=== PATIENT | male | born 1965 | race Caucasian/White ===

== ENCOUNTER → 2021-01-30 02:03 | Outpatient (CLI) | payer OTHER, SELFPAY ==
[2021-01-30 17:43] LABS: SARS-CoV-2 RNA PCR Negative
== END ==
PROVIDERS: PCP Family Medicine; Visit Provider Surgery
DX: Z01.812 Encounter for preprocedural laboratory examination (principal); Z20.822 Contact with and (suspected) exposure to COVID-19
CPT/HCPCS: C9803; U0003; U0005

== ENCOUNTER 2021-02-02 01:42 | Day surgery (SDC) | payer OTHER, SELFPAY ==
[2021-01-20 15:05] VITALS: BMI 23.7
[2021-02-02 11:00] VITALS: BP 139/73; PULSE 80; RESP 16; TEMP 36.1; O2SAT 100; BMI 23.0
[2021-02-02] MEDS: LACTATED RINGERS 1,000 ML 30 ML IV CONT ×2 (11:20→14:46)
[2021-02-02] MEDS: ACETAMINOPHEN 500 MG TABLET 1000 MG PO (11:21)
[2021-02-02] MEDS: KETOROLAC 15 MG/ML VIAL (*BKC) IV PUSH (11:22)
--- NOTE | 2021-02-02 12:45 | WPDANESEPPF ---
Anes - Initial Pre Proc Eval Procedure: Operation Date: 02/02/21 12:30 Proposed Procedures p Left Inguinal Hernia Repair - Terrance Guzman MD Date/Time: 02/02/21 12:45 Surgeon: Terrance Guzman MD Pre Op Diagnosis: Left Inguinal Hernia Patient Data Age: 55 Gender: M Height: 6 ft Weight: 77.1 kg Last Vital Signs Temp 97 F L 02/02/21 11:00 Pulse 80 02/02/21 11:00 Resp 16 02/02/21 11:00 BP 139/73 02/02/21 11:00 Pulse Ox 100 02/02/21 11:00 Allergies Allergy/AdvReac Type Severity Reaction Status Date / Time codeine Allergy Intermediate Nausea and Verified 02/02/21 11:07 Vomiting Penicillins Allergy Unknown breathing Verified 02/02/21 11:07 issues Home Medications Medication Instructions Recorded Confirmed Type ascorbic acid (vitamin C) 3 g PO DAILY 06/27/19 02/02/21 History garlic 1,000 mg PO DAILY 06/27/19 02/02/21 History multivitamin 1 cap PO DAILY 06/27/19 02/02/21 History turmeric 400 mg PO DAILY 01/20/21 02/02/21 History Patient hx anesthesia problems: none Family hx anesthesia problems: none PMFSH Past Medical History Medical History Abnormal EKG Gastroesophageal reflux disease without esophagitis Palpitations Surgical History Surgical History History of removal of cyst History of tooth extraction Family History Family History Father Hypertension Grandparent Heart disease Other Hypertension Social History Social History Smoking packs per day: 1 Smoking cigarettes per day: 20.0 Years smoked: 9 Smoking pack-years: 9.00 Smoking status: Former smoker Second hand tobacco smoke exposure: No Smoking end date: 08/19/13 Alcohol intake: former Substance use: never Substance use type: does not use Living arrangements: with family Gender identity (if verbalized by the patient): Male Spiritual care concerns: No Anes - Eval Final PreProcedure Day of Procedure 02/02/21 12:45 Patient weight: normal Heart: regular rate and rhythm Lungs: clear to auscultation Airway: Mallampati scale class II Neurological: alert and oriented Last oral intake: >/= 8 hours ASA classification: II Emergent: no Anesthetic plan: proceed Anesthesia type and monitoring: general GIVS and standard monitoring Informed Consent: The patient's anesthetic plan and its attendant risks and benefits were discussed with the patient/family/POA. Questions were solicited and answers provided to the satisfaction of the patient/family/POA.
--- NOTE | 2021-02-02 13:05 | WPDHPUPDATE1 ---
History and Physical Update Update Date/Time: 02/02/21 13:05 History and Physical has been reviewed, including an updated exam of the patient. There are NO changes in the patient's condition. Risks, benefits, and alternatives have been discussed and questions answered. Patient agrees to proceed with procedure.
[2021-02-02] MEDS: ceFAZolin 2 GM/D5W 50 ML 2 GM/50 ML BAG IVPB (13:18)
[2021-02-02] MEDS: BUPIVACAINE HCL 0.5% PF 30 ML VIAL INFILTRATE (13:48)
[2021-02-02 14:46] VITALS: BP 145/80; PULSE 66; RESP 16; O2SAT 100
[2021-02-02 15:15] VITALS: BP 159/85; PULSE 68; RESP 20
--- NOTE | 2021-02-02 15:19 | P.OP_ITS ---
Procedure Note - Detailed Date of Procedure 02/02/21 Pre-op Diagnosis Left Inguinal Hernia Post-op Diagnosis same Procedure Performed Left inguinal hernia repair with Parietex hernia mesh system Surgeon Terrance Guzman MD Packing And Final Assembly Supervisor Irlanda JAIMES Anesthesia general (G IV S) and local (0.5% Marcaine with Exparel) Indications Patient noticed an enlarging left inguinal bulge. It has been there for over a year. He was seen in the office and found to have a reducible left inguinal hernia. He is taken to surgery now for repair. Findings Patient had a large direct inguinal hernia. Description of Procedure Patient was marked in the preoperative holding area. He was then taken to surgery and IV sedation was introduced. The left groin and genitalia were prepped and draped. The proposed incision was marked on the skin in the left groin. Local anesthetic was infiltrated into the skin and the deeper subcutaneous tissues. Incision was made and dissection was carried down through the subcutaneous. Crossing veins were cauterized and divided. Eventually we dissected through Filomena's fascia and down to the external oblique aponeurosis. The aponeurosis was exposed as was the external ring. We infiltrated additional local anesthetic deep to the aponeurosis in the area of the spermatic cord and inguinal canal. The external oblique aponeurosis was then opened laterally and this incision was extended medially through the external ring. Care was taken to avoid injury to the ileoinguinal nerve which was left attached to the spermatic cord. The leaves of the aponeurosis were freed from the underlying inguinal canal contents. I then mobilized the cord medially on a Alexandru drain. The hernia sac was seen located medially in the inguinal canal. It was dissected free from the spermatic cord. It was a wide-based direct hernia. I checked in the cord and no indirect hernia was noted. I dissected circumferentially around the neck of the direct hernia. I then scored through the transversalis fascia circumferentially around the hernia sac. This was done just off the neck of the hernia. I was then able to dunk the hernia into the retroperitoneum. An 8 cm Parietex [place] was chosen. It was folded formal plug. It was placed in the defect and then sutured in position with interrupted 3 0 Vicryl suture. Some suture were used also partially close the defect by suturing the edges to 1 another over the plug. I then cut the patch to the appropriate size and placed it over the inguinal canal floor. The lateral leaves were passed beyond the cord. The cord and ilioinguinal nerve were then laid over the patch. I closed the external oblique aponeurosis with interrupted 3 0 Vicryl suture. Filomena's fascia was closed with interrupted 3 0 Vicryl suture. The subcutaneous was closed with 4 0 interrupted Vicryl suture. A subcuticular interrupted 4 0 Vicryl skin stitch was placed. Finally a running 4 Monocryl subcuticular skin stitch was placed. The wound was dressed with Exofin surgical adhesive. The patient was awakened and taken to recovery in good condition. Sponge and needle counts were correct x2. Implants 8 cm Parietex hernia mesh system Estimated Blood Loss -5.0 Drains No Packing No Pathology none sent Complications None Condition stable Disposition same day
[2021-02-02 15:45] VITALS: BP 141/69; PULSE 67; RESP 20
[2021-02-02 16:15] VITALS: BP 154/87; PULSE 60; RESP 20
[2021-02-02 16:45] VITALS: BP 137/78; PULSE 66; RESP 20
== END 2021-02-02 17:00 | disposition home or self-care (01) ==
PROVIDERS: PCP Family Medicine; Visit Provider Surgery
PROC: (CPT 49505; principal; 2021-02-02 12:30)
DX: K40.90 Unilateral inguinal hernia, without obstruction or gangrene, not specified as recurrent (principal); K21.9 Gastro-esophageal reflux disease without esophagitis; Z87.891 Personal history of nicotine dependence
CPT/HCPCS: 49505; A9270; C1781; C9290; C9803; J0690; J1885; J2250; J2405; J2704; J3010; J7120; U0003; U0005

== ENCOUNTER 2021-11-25 15:04 | Emergency (ER) | payer OTHER, SELFPAY ==
[2021-11-25 15:12] VITALS: BP 148/75; PULSE 89; RESP 18; TEMP 36.9; O2SAT 100
--- NOTE | 2021-11-25 15:33 | ED.URI ---
HPI - URI/Sore Throat General Chief Complaint: Upper Respiratory Infection Stated Complaint: Headache,Congestion Time Seen by Provider: 11/25/21 15:34 Source: patient Mode of arrival: ambulatory Limitations: no limitations History of Present Illness HPI Narrative: James Higuera is a 55 yo male with no PMH who comes to [facility] complaining of 2 to 3 days of sinus symptoms after having a cold for the week prior. He has no obvious congestion and is afebrile on presentation Related Data Home Medications Medication Instructions Recorded Confirmed ascorbic acid (vitamin C) 3 g PO DAILY 06/27/19 11/25/21 garlic 1,000 mg PO DAILY 06/27/19 11/25/21 multivitamin 1 cap PO DAILY 06/27/19 11/25/21 turmeric 400 mg PO DAILY 01/20/21 11/25/21 Allergies Allergy/AdvReac Type Severity Reaction Status Date / Time Penicillins Allergy Severe breathing Verified 11/25/21 15:31 issues codeine Allergy Intermediate Nausea and Verified 11/25/21 15:13 Vomiting Review of Systems Review of Systems: CONSTITUTIONAL: Denies fever, chills, sweats. EYES: Denies visual changes, redness, discharge. ENT: Denies rhinorrhea, sinus congestion with yellow discharge, sore throat, otalgia. CARDIOVASCULAR: Denies chest pain, palpitations, edema. RESPIRATORY: Denies dyspnea, wheezing, cough GASTROINTESTINAL: Denies abdominal pain, nausea, vomiting, diarrhea. GENITOURINARY: Denies dysuria, hematuria, abnormal discharge SKIN: Denies rash or itching. NEUROLOGIC: Denies numbness, or focal weakness. PSYCHIATRIC: Denies anxiety or depression. [facility] Past Medical History Medical History Abnormal EKG Gastroesophageal reflux disease without esophagitis Palpitations Surgical History Surgical History H/O left inguinal hernia repair 02/02/21 History of removal of cyst History of tooth extraction Family History Family History Father Hypertension Grandparent Heart disease Other Hypertension Social History Social History Smoking packs per day: 1 Smoking cigarettes per day: 20.0 Years smoked: 9 Smoking pack-years: 9.00 Second hand tobacco smoke exposure: No Smoking end date: 08/19/13 Alcohol intake: former Alcohol use details: Occasional Substance use: never Substance use type: does not use Gender identity (if verbalized by the patient): Male Spiritual care concerns: No Comments At time of signature, I agree with nursing past medical, surgical, social and family history. There is no relevant family history pertinent to the presenting complaint. Patient's blood pressure is elevated at this visit but denies any history of hypertension Exam Narrative: GENERAL: This is a well-nourished, well-developed patient, in no distress. HEAD: normocephalic, atraumatic. EYES:. Sclera clear/white. Vision is grossly intact. EARS: External ears normal, auditory canals clear and without drainage, TMs normal without perforation. Hearing grossly intact. NOSE: External nose normal without nasal discharge, nares without redness, no rhinorrhea. No puffiness around the eyes THROAT: Mucous membranes moist, posterior pharynx pink withsmall amount clear drainage NECK: Neck supple, non-tender CARDIOVASCULAR: Regular rate and rhythm without murmurs, gallops, or rubs. RESPIRATORY: Clear to auscultation. Breath sounds equal bilaterally. No wheezes, rales, or rhonchi. GASTROINTESTINAL: Abdomen soft, non-tender, SKIN: warm, intact with no suspicious lesions or rash, good texture and turgor. NEURO: awake, alert, and oriented to person, place and time. There were no obvious focal neurologic abnormalities. Steady gait EXTREMITIES: Normal range of motion. BACK: Nontender without deformity Course Course Emergency Course: Dio
== END 2021-11-25 15:43 | disposition home or self-care (01) ==
PROVIDERS: Emergency Provider Nurse Practitioner; PCP Family Medicine
DX: J01.90 Acute sinusitis, unspecified (principal); J01.10 Acute frontal sinusitis, unspecified; F17.210 Nicotine dependence, cigarettes, uncomplicated; K21.9 Gastro-esophageal reflux disease without esophagitis
CPT/HCPCS: 99213; G0463

== ENCOUNTER 2023-01-08 16:09 | Emergency (ER) | payer OTHER, SELFPAY ==
--- NOTE | ~2023-01-08 | CT_ITS ---
EXAMINATION: CT brain wo con DATE: 01/08/2023 18:49 INDICATION: headache, subconjunctival hemorrhage . TECHNIQUE: Computed tomography (CT) of the head was performed without intravenous contrast. The mA wa s adjusted according to patient size. Iterative reconstruction technique was employed. The dose-lengt h product was 681.00 mGy-cm. COMPARISON: 01/28/2015. FINDINGS: No acute intracranial hemorrhage or extra-axial fluid collection. No hydrocephalus, mass, or herniation. No acute ischemic infarct. Unremarkable dural venous sinus attenuation. No acute osseous abnormality. The aerated spaces are clear. IMPRESSION: No acute intracranial process. Reviewed, dictated and finalized at location K.
[2023-01-08 16:19] VITALS: BP 146/82; PULSE 59; RESP 16; TEMP 36.6; O2SAT 100
--- NOTE | 2023-01-08 18:25 | ED.EYEPROB ---
HPI - Eye Problem General Chief complaint: Eye Problems Stated complaint: bleeding left eye Time Seen by Provider: 01/08/23 18:23 History of Present Illness HPI Narrative: 57-year-old male reports for evaluation of ruptured blood vessels to the left thigh that started today. Patient states he was sitting in a meeting when he felt a dull ache in his left eye. States he later went to the bathroom, looked in the mirror and saw the ruptured blood vessels. He denies blurred vision, diplopia, drainage, eye injury. States it does not feel like he has a foreign body in his eye. He does report a mild headache. He does not take any anticoagulation medications or antiplatelets. Related Data Home Medications Medication Instructions Recorded Confirmed ascorbic acid (vitamin C) 1,000 mg 3 g PO DAILY 06/27/19 12/31/22 tablet garlic 1,000 mg capsule 1,000 mg PO DAILY 06/27/19 12/31/22 multivitamin 1 cap PO DAILY 06/27/19 12/31/22 turmeric 400 mg capsule 400 mg PO DAILY 01/20/21 12/31/22 Allergies Allergy/AdvReac Type Severity Reaction Status Date / Time Penicillins Allergy Severe breathing Verified 12/31/22 16:44 issues codeine Allergy Intermediate Nausea and Verified 12/31/22 16:44 Vomiting Review of Systems Review of Systems: CONSTITUTIONAL: Denies fever, chills EYES: See HPI ENT: Denies rhinorrhea, congestion, sore throat, or otalgia. CARDIOVASCULAR: Denies chest pain, palpitations, or edema. RESPIRATORY: Denies cough or dyspnea. GASTROINTESTINAL: Denies abdominal pain, nausea, vomiting, or diarrhea. GENITOURINARY: Denies dysuria or hematuria. SKIN: Denies rash or itching. MUSCULOSKELETAL: Denies back pain, joint pain, or myalgia. NEUROLOGIC: Denies headache, numbness, dizziness, or weakness. PSYCHIATRIC: Denies anxiety or depression. [facility] Past Medical History Medical History Abnormal EKG Gastroesophageal reflux disease without esophagitis Palpitations Surgical History Surgical History H/O left inguinal hernia repair 02/02/21 History of removal of cyst History of tooth extraction Family History Family History Father Hypertension Grandparent Heart disease Other Hypertension Social History Social History Smoking packs per day: 1 Smoking cigarettes per day: 20.0 Years smoked: 9 Smoking pack-years: 9.00 Smoking status: Never smoker Second hand tobacco smoke exposure: No Smoking end date: 08/19/13 Alcohol intake: former Alcohol use details: Occasional Substance use: never Substance use type: does not use Living arrangements: with family Occupation/Education: occupation Gender identity (if verbalized by the patient): Male Spiritual care concerns: No Exam Narrative: GENERAL: Well-appearing, in no acute distress. HEAD: Normocephalic EYES: Fresh red blood noted to the outer left quadrant of the left eye. It does not cross the iris. No hyphema. PEERLA. EOMI. peripheral vision intact. Visual acuity: L 20/20, R 20/25. Tonopen: R 12, L 16. No drainage or discharge noted from eye. ENT: Nares clear. Mucous membranes moist. Oropharynx without tonsillar hypertrophy exudate or other lesions. NECK: Supple. CHEST: No respiratory distress. Clear to auscultation, no adventitious breath sounds. HEART: Regular rate and rhythm. No murmur heard. Normal peripheral pulses. SKIN: Warm, dry, no rash. NEURO: No focal deficits. Alert and oriented x3. PSYCH: Normal mood and affect. Course Vital Signs Vital signs: Vital Signs Temperature 97.8 F 01/08/23 16:19 Pulse Rate 59 L 01/08/23 16:19 Respiratory Rate 16 01/08/23 16:19 Blood Pressure 146/82 H 01/08/23 16:19 Pulse Oximetry 100 01/08/23 16:19 Oxygen Delivery Room Air 0
[2023-01-08 18:31] VITALS: BP 133/91; PULSE 64; RESP 16; O2SAT 100
[2023-01-08 18:49] LABS: Basophils Percent Auto 0.3 % (0.2-1.2); Eosinophils Absolute Auto 0.1 K/mm3 (0-0.3); Eosinophils Percent Auto 1.5 % (0-4.4); Hematocrit 46.7 % (42.0-52.0); Hemoglobin 15.8 g/dL (14.0-18.0); Immature Granulocyte Absolute 0.03 K/mm3 (0.00-0.031); Immature Granulocyte Percent A 0.3 % (0-0.5); Lymphocytes Absolute Auto 1.77 K/mm3 (0.9-3.2); Lymphocytes Percent Auto 20.4 % (18.3-44.2); Mean Corpuscular HGB Conc 33.8 g/dl (32-36); Mean Corpuscular Hemoglobin 29.9 pg (26-34); Mean Corpuscular Volume 88.4 fl (80-100); Mean Platelet Volume 10.1 fl (7.4-10.4); Monocytes Absolute Auto 0.6 K/mm3 (0.1-0.6); Monocytes Percent Auto 6.6 % (2.6-8.5); Neutrophils Absolute Auto 6.2 K/mm3 (1.3-6.7); Neutrophils Percent Auto 70.9 % (45.5-73.1); Platelet Count Result 318 k/mm3 (150-375); Red Blood Count 5.28 M/mm3 (4.6-6.20); Red Cell Distribution Width 12.3 % (11.5-14.5); White Blood Count 8.7 K/mm3 (4.5-10.0)
== END 2023-01-08 19:18 | disposition home or self-care (01) ==
PROVIDERS: Emergency Provider Physician Assistant; PCP Family Medicine
DX: H11.32 Conjunctival hemorrhage, left eye (principal); K21.9 Gastro-esophageal reflux disease without esophagitis; Z87.891 Personal history of nicotine dependence
CPT/HCPCS: 36415; 70450; 85025; 99284

== ENCOUNTER 2023-12-11 12:40 | Inpatient (IN) | payer OTHER, SELFPAY ==
[2023-12-11] VITALS (17 sets, daily range): BP systolic 117–157; BP diastolic 67–80; PULSE 63–85; RESP 12–20; TEMP 36.6–36.7; O2SAT 98–100; BMI 22.9
--- NOTE | ~2023-12-11 | XR_ITS ---
EXAMINATION: XR chest 2V 12/11/2023 16:26 INDICATION: Dyspnea PROCEDURE: 2 view chest COMPARISON: 06/27/2019 FINDINGS: The lungs are clear. The cardiomediastinal silhouette is within normal limits. There are no pleural effusions. There is no pneumothorax suspected. IMPRESSION: 1: NO ACUTE CARDIOPULMONARY DISEASE. Reviewed, dictated and finalized at location B.
--- NOTE | ~2023-12-11 | CT_ITS ---
EXAMINATION: CTA chest PE protocol DATE: 12/11/2023 19:22 INDICATION: Chest pain. Dyspnea. TECHNIQUE: Computed tomography angiography (CTA) of the chest was performed with 100 mL Omnipaque-350 intravenous contrast timed to evaluate the pulmonary arteries. Coronal maximum intensity projection 3D-reconstructions were created by the technologist. Automated exposure control and iterative reconst ruction technique were employed. The dose-length product was 364.48 mGy-cm. COMPARISON: None. FINDINGS: The lungs demonstrate mild atelectasis. There is mild scarring at right lung apex. No pleur al effusion. The heart size is normal. No pericardial effusion. There is no pulmonary embolus. There is severe atrophy of right kidney. There is mild thoracic spondylosis. IMPRESSION: 1. No pulmonary embolus. 2. Severe atrophy of right kidney. Reviewed, dictated and finalized at location E.
--- NOTE | ~2023-12-11 | NM_ITS ---
EXAMINATION: NM nano stress w perfusion DATE: 12/13/2023 10:41 CDT INDICATION: Chest pain TECHNIQUE: Rest images were obtained following intravenous administration of 10.9 mCi Tc99m tetrofosm in (Myoview). The patient was infused intravenously with Lexiscan (regadenoson). Then, 35.3 mCi Tc99m tetrofosmin (Myoview) was administered intravenously, and stress images were obtained. Data was onesimo nstructed into short axis and horizontal and vertical long axis SPECT images. Gated SPECT images were also obtained. COMPARISON: None. FINDINGS: There is no definite reversible or fixed perfusion abnormality to suggest ischemia or infar ction. There is no segmental wall motion abnormality. Left ventricular ejection fraction measures 7 4%. IMPRESSION: 1. No definite ischemia or infarct. 2. Normal left ventricular ejection fraction measuring 74%. Reviewed, dictated and finalized at location B.
[2023-12-11 12:47] LABS: Glucose Point of Care 105 mg/dl (65-105)
--- NOTE | 2023-12-11 16:01 | ED.GENADULT ---
HPI - General Adult General Chief complaint: Shortness of Breath/Dyspnea <Gadiel Parry PA-C - Last Filed: 12/11/23 16:03> Stated complaint: jittery, sweaty, dyspnea <Gadiel Parry PA-C - Last Filed: 12/11/23 16:03> Time Seen by Provider: 12/11/23 16:01 <Gadiel Parry PA-C - Last Filed: 12/11/23 16:03> This is a 57-year-old male who presents to the ED with chief complaint of an episode of shortness of breath and palpitations onset just prior to arrival. Patient states that he was driving in his car [place] when he started to feel discomfort in the chest as well as irregular heartbeat. States he this was associated with bilateral hand numbness and tingling and shortness of breath. Reports that he had a similar episode 1 and half weeks ago. States that about a week ago his mother and he has been dealing with that stress recently. Denies any cardiac or medical history. Denies leg swelling, cough, fevers, chills, back pain, abdominal pain, nausea, vomiting, syncope. <Nelly Norris PA-C - Last Filed: 12/12/23 02:52> Source: patient <Gadiel Parry PA-C - Last Filed: 12/11/23 16:03> Mode of arrival: ambulatory <Gadiel Parry PA-C - Last Filed: 12/11/23 16:03> Limitations: no limitations <ROWDY Brown Last Filed: 12/11/23 16:03> History of Present Illness HPI narrative: This is a 57-year-old male who presents to the ED with chief complaint of an episode of shortness of breath and palpitations onset just prior to arrival. Patient states that he was driving in his car [place] from [place] when he started to feel discomfort in the chest as well as irregular heartbeat. States he this was associated with bilateral hand numbness and tingling and shortness of breath. Reports that he had a similar episode 1 and half weeks ago. States that about a week ago his mother and he has been dealing with that stress recently. Denies any cardiac or medical history. Denies leg swelling, cough, fevers, chills, back pain, abdominal pain, nausea, vomiting, syncope. <Gadiel Parry PA-C - Last Filed: 12/11/23 16:03> 57-year-old male presents to emergency department for an episode of palpitations, shortness of breath and diaphoresis that occurred prior to arrival. Patient states he was on his way home from the [place] when he felt a flutter in his chest that lasted half a second followed by shortness of breath, jittery-ness, bilateral hand tingling and diaphoresis. Patient states he called his and came to the ER immediately for further evaluation. Upon arrival, he states he noticed some pain to the left side of his chest that radiated down his left arm to his elbow. States this lasted approximately 30-45 minutes. He now is resting comfortably in exam bed and states he feels while, he no longer has chest pain or shortness of breath. He states he does have some leftover jitteriness. He states he has had episodes of this in the past with a have never been this bad before. His last episode was 1.5 weeks ago, 4 years ago and about 8 years ago. He denies a diagnosis of anxiety. Also endorses his mother 1 week ago and he has been under he a large amount of stress for the past 2-3 months with her illness. States he has not smoked and multiple decades. Reports cardiac history with his paternal grandfather, otherwise denies current or familial cardiac history. <Nelly Norris PA-C - Last Filed: 12/12/23 02:52> Related Data Home medications: Home Medications Medication Instructions Recorded Confirmed ascorbic acid (vitamin C) 1,000 mg 3 g PO DAILY 06/27/19 12/11/23 tablet multivitamin 1 cap PO DAILY 06/27/19 12/11/23 turmeric 400 mg capsule 400 mg PO DAILY 01/20/21 12/11/23 <Gadiel Parry PA-C - Last Filed: 12/11/23 16:03> Allergies/adverse reactions: Allergies Allergy/AdvReac Type Severity Reaction Status Date / Time Anna
[2023-12-11 16:27] LABS: Basophils Percent Auto 0.2 % (0.2-1.2); Eosinophils Percent Auto 0.2 % (0-4.4); Hematocrit 46.9 % (42.0-52.0); Hemoglobin 15.7 g/dL (14.0-18.0); Immature Granulocyte Absolute 0.05 K/mm3 (0.00-0.031); Immature Granulocyte Percent A 0.4 % (0-0.5); Lymphocytes Absolute Auto 1.46 K/mm3 (0.9-3.2); Mean Corpuscular HGB Conc 33.5 g/dl (32-36); Mean Corpuscular Hemoglobin 29.8 pg (26-34); Mean Platelet Volume 11.7 fl (7.4-10.4); Monocytes Absolute Auto 0.5 K/mm3 (0.1-0.6); Monocytes Percent Auto 3.9 % (2.6-8.5); Neutrophils Absolute Auto 11.2 K/mm3 (1.3-6.7); Neutrophils Percent Auto 84.3 % (45.5-73.1); Platelet Count Result 238 k/mm3 (150-375); Red Blood Count 5.27 M/mm3 (4.6-6.20); Red Cell Distribution Width 12.3 % (11.5-14.5); White Blood Count 13.2 K/mm3 (4.5-10.0)
[2023-12-11 16:28] LABS: Alanine Aminotransferase 25 U/L (6-50); Albumin Level 4.8 g/dL (3.5-5.1); Alkaline Phosphatase 51 U/L (38-126); Anion Gap 7 mmol/L (4-12); Aspartate Amino Transferase 32 U/L (17-59); Bilirubin,Total 0.7 mg/dL (0.2-1.3); Blood Urea Nitrogen 22 mg/dL (9-20); Calcium 9.6 mg/dL (8.4-10.2); Carbon Dioxide 26 mmol/L (22-30); Chloride 105 mmol/L (98-107); Estimated Glomerular Filt Rate > 60; Glucose 129 mg/dL (65-110); Potassium 3.8 mmol/L (3.4-5.0); Sodium 138 mmol/L (137-145)
[2023-12-11 16:43] LABS: Troponin I 0.053 ng/mL (0.000-0.034)
[2023-12-11] MEDS: ASPIRIN 81 MG CHEWABLE TABLET 324 MG PO (16:54)
[2023-12-11 17:11] LABS: Partial Thromboplastin Time 31.3 Seconds (22.3-36.8); Prothrombin Time 13.8 Seconds (11.1-14.7)
[2023-12-11 17:15] LABS: D Dimer 1.02 ug/mL (<0.48)
[2023-12-11 18:42] LABS: NT Pro B Type Natriuretic Pept 80 pg/mL (19.9-100)
--- NOTE | 2023-12-11 19:00 | ECG_ITS ---
SEE SCANNED COPY FOR CONFIRMED REPORT MTDD
[2023-12-11] MEDS: LORazepam INJ (*CRX) 2 MG/ML VIAL 0.5 MG IV PUSH (19:26)
[2023-12-11 19:50] LABS: Troponin I 0.061 ng/mL (0.000-0.034)
--- NOTE | 2023-12-11 20:14 | PM.IMHP ---
H&P: HPI History of Present Illness Date/Time: 12/11/23 20:14 Chief Complaint: chest pain. Narrative: This is a 57-year-old male with past medical history significant for gastroesophageal reflux disease. patient presented to the emergency room after having episode while driving of flutter in the chest diaphoresis lightheadedness nausea this episode lasted roughly 40 [address] himself to the emergency room. At the time of my visit patient rated his pain at 0/10 in intensity. Has been his usual state of health up until this point. Denies any palpitations, shortness of breath, PND, cough, nausea, vomiting, diarrhea, abdominal pain, fevers, rigors, chills, leg swelling. Preliminary workup was significant for abnormal troponin. EXAMINATION: XR chest 2V 12/11/2023 16:26 INDICATION: Dyspnea PROCEDURE:? 2 view chest COMPARISON: 06/27/2019 FINDINGS: The lungs are clear.? The cardiomediastinal silhouette is within normal limits.? There are no pleural effusions.? There is no pneumothorax suspected.? IMPRESSION: 1:? NO ACUTE CARDIOPULMONARY DISEASE. EXAMINATION: CTA chest PE protocol DATE: 12/11/2023 19:22 INDICATION: Chest pain. Dyspnea. TECHNIQUE: Computed tomography angiography (CTA) of the chest was performed with 100 mL Omnipaque-350 intravenous contrast timed to evaluate the pulmonary arteries. Coronal maximum intensity projection 3D-reconstructions were created by the technologist. Automated exposure control and iterative reconstruction technique were employed. The dose-length product was 364.48 mGy-cm. COMPARISON: None. FINDINGS: The lungs demonstrate mild atelectasis. There is mild scarring at right lung apex. No pleural effusion. The heart size is normal. No pericardial effusion. There is no pulmonary embolus. There is severe atrophy of right kidney. There is mild thoracic spondylosis. IMPRESSION: 1. No pulmonary embolus. 2. Severe atrophy of right kidney. Review of Systems Review of Systems: Chest pain, diaphoresis, nausea, lightheadedness lasted for 40 minutes Constitutional: Constitutional: Denies chills, Denies fatigue, Denies fever(s), Denies malaise and Denies weakness Eyes: Eyes: Denies change in vision ENT: Denies dysphagia and Denies odynophagia Cardiovascular: Cardiovascular: Reports chest pain, Denies leg edema, Denies radiating jaw, neck or arm pain, Denies palpitations and Reports other ( chest flutter) Respiratory: Respiratory: Denies chest congestion, Denies cough and Denies excessive phlegm production Gastrointestinal: Gastrointestinal: Denies abdominal pain, Denies nausea and Denies vomiting Genitourinary: Genitourinary: Denies dysuria Musculoskeletal: Musculoskeletal: Denies myalgias Integumentary/Breasts: Skin/Breast: Denies rash Neurologic: Denies focal weakness and Denies Sensory deficit (Neuro) Psychiatric: Psychiatric: Reports no additional psychiatric complaints and Reports as per HPI Endocrine: Endocrine: Denies cold intolerance, Denies fatigue, Denies flushing, Denies heat intolerance, Denies polyphagia, Denies polydipsia, Denies polyuria and Denies palpitations Hematologic/Lymphatic: Hematologic/Lymphatic: Reports no additional hematologic/lymphatic complaints and Reports as per HPI Allergic/Immunologic: Allergic/Immunologic: Reports no additional allergic/immunologic complaints and Reports as per HPI PMFSH Past Medical History Medical History (Updated 12/11/23 @ 20:49 by Patrick Melendez MD) Abnormal EKG Gastroesophageal reflux disease without esophagitis Palpitations Surgical History Surgical History H/O left inguinal hernia repair 02/02/21 History of removal of cyst History of tooth extraction Family History Family History Father Hypertension Grandparent Heart disease Other Hypertension Social History
--- NOTE | 2023-12-11 21:55 | ADMGEN ---
This patient, James Higuera, was admitted to IMU Room 200-01. Patient/family oriented to hospital policies and general routines including ID bracelet, bed and alarms, visiting hours, pain management, procedures, bathroom and other care routines, personal items, smoking policy, room service/diet, and visiting hours. Information on how to activate the Rapid Response Team has been discussed. Patient/Family are encouraged to report perceived risks to care and to ask questions if they do not understand what they are told or what they should do.
[2023-12-11 22:28] LABS: Cholesterol 179 mg/dL (0-200)
[2023-12-11 22:40] LABS: Troponin I 0.042 ng/mL (0.000-0.034)
[2023-12-11 23:30] LABS: HDL Direct 47 mg/dL; Triglycerides 68 mg/dL (<150)
[2023-12-11 23:36] LABS: LDL Cholesterol Direct 118 mg/dL
[2023-12-12] VITALS (21 sets, daily range): BP systolic 123–149; BP diastolic 67–79; PULSE 60–72; RESP 16–18; TEMP 36.1–36.6; O2SAT 100
--- NOTE | 2023-12-12 09:12 | PM.CNCAR ---
Assessment and Plan Assessment and plan (1) Elevated troponin: Code(s): R79.89 - Other specified abnormal findings of blood chemistry Status: Acute Assessment and Plan: Mild troponin elevation with flat curve presenting with atypical symptoms suggestive of heightened anxiety/panic attack. Another consideration would be SVT however the symptoms as he describes persisted for no more than a couple of seconds and he has been in sinus rhythm without SVT throughout. As such, this is not a cannot be the explanation for his symptomatology. Flat troponin elevation present initially indicates a process ongoing prior to presentation I would not be consistent with acute coronary syndrome and/or plaque rupture although precise etiology remains unclear at this time. Given the lack of alternative explanation I have recommended ischemic workup for further evaluation. Unfortunately, he was allowed to eat breakfast this morning and as such ischemic evaluation will need to be deferred. Will obtain 2D echocardiogram to assess LV function, wall motion abnormality, valve pathology, pulmonary pressures and assess pericardium. Further recommendation to follow after review. Discussed at great length the patient risks, benefits and alternatives to the above approach. Patient verbalized understanding and agreed with plan of care. Patient is otherwise hemodynamically stable and with an exam which is not suggest acute pericarditis or significant valvular heart disease. He is not decompensated heart failure and has been ruled out for pulmonary embolism with CTA of the chest initially. Another consideration could be myocarditis yet his presentation and clinical picture are not highly suggestive. His presenting symptoms are not consistent with esophageal spasm although cannot entirely exclude coronary vasospasm yet he did not have chest pain consistent with his presentation of any kind. Recommend aspirin 81 mg daily for now. Check lipid panel. DVT prophylaxis. Continue telemetry for now. He is not decompensated heart failure. He was placed on a statin therapy atorvastatin 20 mg bedtime by primary service which is reasonable, however, is unclear this is warranted. CTA of the chest not reveal pericardial effusion, pulmonary embolism or mention of coronary calcification. Further determination with regard to timing of noninvasive ischemic evaluation will be dependent on repeat ECG, troponin, clinical symptoms and review of echocardiogram. Recommendation to follow. (2) Chest pain: Qualifiers: Chest pain type: unspecified Qualified Code(s): R07.9 - Chest pain, unspecified Code(s): R07.9 - Chest pain, unspecified Status: Acute Assessment and Plan: Chest discomfort with was in no way part of his presenting symptom complex. He incidentally had brief episode of discomfort at rest well after presentation which has not recurred. His troponin was already elevated prior to development of transient discomfort such is difficult to associate his presentation with subsequent entirely different symptom as he did not present with chest pain. Nonetheless, workup as above. Symptoms are not consistent with GERD either. Further workup per hospitalist service as well. (3) Palpitations: Code(s): R00.2 - Palpitations Status: Acute Assessment and Plan: Palpitations were very brief lasting no more than a couple of seconds and he has not demonstrated SVT or other significant arrhythmias since presentation. We discussed at length should he have had persistent or rapid tachyarrhythmia this could explain the vast majority if not all the symptoms including elevated troponin. However, there is no documentation and palpitations were not a prominent symptom which persisted nor has not recurred. No indication for AV daisy blocking agents at this time. (4) Gastroesophageal reflux disease without esophagitis: Code(s): K21.9 - Gastr
--- NOTE | 2023-12-12 09:59 | ECHO_ITS ---
Patient Info Name: James Higuera Age: 57 years : 1965 Gender: Male Ht: 72 in Wt: 171 lbs BSA: 1.99 m2 HR: 75 bpm BP: 146 / 76 mmHg Heart Rhythm: Sinus Rhythm Technical Quality: Fair Exam Date: 12/12/2023 10:37 AM Exam Location: Echo Lab Patient Status: Inpatient Admit Date: 12/11/2023 Staff Ordering Physician: Terry Hammonds MD Mainspring Winder: Giorgi Nunn RDCS Attending Provider: Patrick Melendez MD Referring Physician: Cassius LOVE; Exam Type: CA echo doppler color flow Study Info Indications - Elevated Troponin Complete two-dimensional, color flow and Doppler transthoracic echocardiogram is performed. Summary 1. Complete two-dimensional, color flow and Doppler transthoracic echocardiogram is performed. 2. Left ventricular chamber dimension is normal. 3. Left ventricular systolic function is hyperdynamic, estimated at >70%. 4. There is no increased left ventricular wall thickness. 5. The left ventricular diastolic function is normal. 6. There is no aortic valve stenosis. 7. There is mild mitral valve regurgitation. 8. There is trace tricuspid valve regurgitation. 9. No pulmonary hypertension, estimated pulmonary arterial systolic pressure is 30 mmHg. Left Ventricle Left ventricular chamber dimension is normal. Left ventricular systolic function is hyperdynamic, estimated at >70%. There is no increased left ventricular wall thickness. The left ventricular diastolic function is normal. Right Ventricle Right ventricular chamber dimension is normal. Right ventricular systolic function is normal. Left Atria Left atrial chamber dimension is normal. Right Atria Right atrial chamber dimension is normal. Aortic Valve The aortic valve is trileaflet. There is mild aortic valve sclerosis. There is no aortic valve stenosis. There is no aortic valve regurgitation. Pulmonic Valve The pulmonic valve is not well visualized. There is trace pulmonic regurgitation. Mitral Valve The mitral valve has normal leaflets. There is mild mitral valve regurgitation. Tricuspid Valve The tricuspid valve leaflets are normal. There is trace tricuspid valve regurgitation. No pulmonary hypertension, estimated pulmonary arterial systolic pressure is 30 mmHg. Pericardium/Pleural The pericardium appears normal. There is trivial pericardial effusion. Inferior Vena Cava Normal inferior vena cava with >50% collapse upon inspiration consistent with normal right atrial pressure, 5 mmHg. Aorta The aortic root size at the sinus of Valsalva is normal. Left Ventricular Outflow Tract Name Value Normal LVOT 2D LVOT Diameter 2.0 cm LVOT Doppler LVOT Peak Gradient 5 mmHg LVOT Mean Gradient 2 mmHg LVOT VTI 21 cm LVOT VTI/AV VTI Ratio 0.9 LVOT Stroke Volume 66 ml LVOT CO 4.1 l/min LVOT CI 2.1 l/min/m2 Pulmonic Valve Name Value Normal
--- NOTE | 2023-12-12 09:59 | ECG_ITS ---
SEE SCANNED COPY FOR CONFIRMED REPORT MTDD
[2023-12-12 10:49] LABS: Basophils Percent Auto 0.1 % (0.2-1.2); Eosinophils Percent Auto 0.4 % (0-4.4); Hematocrit 47.4 % (42.0-52.0); Hemoglobin 15.7 g/dL (14.0-18.0); Immature Granulocyte Absolute 0.02 K/mm3 (0.00-0.031); Immature Granulocyte Percent A 0.3 % (0-0.5); Lymphocytes Absolute Auto 1.51 K/mm3 (0.9-3.2); Lymphocytes Percent Auto 19.9 % (18.3-44.2); Mean Corpuscular HGB Conc 33.1 g/dl (32-36); Mean Corpuscular Volume 90.5 fl (80-100); Mean Platelet Volume 11.8 fl (7.4-10.4); Monocytes Absolute Auto 0.6 K/mm3 (0.1-0.6); Monocytes Percent Auto 7.3 % (2.6-8.5); Neutrophils Absolute Auto 5.5 K/mm3 (1.3-6.7); Platelet Count Result 241 k/mm3 (150-375); Red Blood Count 5.24 M/mm3 (4.6-6.20); Red Cell Distribution Width 12.6 % (11.5-14.5); White Blood Count 7.6 K/mm3 (4.5-10.0)
[2023-12-12 11:03] LABS: Cholesterol 194 mg/dL (0-200); HDL Direct 56 mg/dL; Triglycerides 53 mg/dL (<150)
[2023-12-12 11:13] LABS: Troponin I < 0.012 ng/mL (0.000-0.034)
[2023-12-12 11:14] LABS: LDL Cholesterol Direct 121 mg/dL
[2023-12-12 11:47] LABS: Hemoglobin A1C 5.1 % (<5.7)
--- NOTE | 2023-12-12 13:54 | PM.IMPN ---
Progress Note: A&P Assessment and Plan (1) Chest pain: Qualifiers: Chest pain type: unspecified Qualified Code(s): R07.9 - Chest pain, unspecified Code(s): R07.9 - Chest pain, unspecified Status: Acute Plan 57-year-old male with past medical history significant for gastroesophageal reflux disease. patient presented to the emergency room after having episode while driving of flutter in the chest diaphoresis lightheadedness nausea this episode lasted roughly 40 minutes? 1. Chest pain: Appreciate cardiology help Continue with aspirin, statin Await echocardiogram Plan for stress test tomorrow morning 2. GERD: Continue with pantoprazole 3. Code status: Full 4. DVT prophylaxis: Heparin subQ 5. Disposition: Pending improvement/pending stress test Time Spent With Patient Time with patient: 15 - 25 minutes Subjective Date/time seen: 12/12/23 13:54 Interval history: No acute events overnight Review of Systems Review of Systems: All systems reviewed & are unremarkable except as noted in HPI and below Exam Const: General: comfortable and no acute distress HENMT: Face/Nose/Sinus: Normal nares present Mouth: Yes moist mucous membranes Eyes: Sclera: sclerae normal Neck: Neck: supple Resp: Effort & Inspection: normal respiratory effort Auscultation: clear to auscultation bilaterally Cardio: Rate: regular rate Rhythm: regular rhythm GI: GI Palp: Yes Soft to palpation Skin: General skin exam: normal color Neuro: Speech: normal speech Extrem: General: normal to inspection Psych: Mental Status: mental status grossly normal Objective Data Vital Signs Vital Signs: Vital Signs - 24 hr 12/11/23 14:43 12/11/23 16:38 12/11/23 19:06 Temperature Pulse Rate 71 66 67 Respiratory Rate 16 18 Blood Pressure 138/78 157/80 H Pulse Oximetry 100 100 Oxygen Delivery Fraction of Inspired Oxygen 12/11/23 19:28 12/11/23 19:29 12/11/23 20:34 Temperature 98 F Pulse Rate 69 70 Respiratory Rate 16 16 Blood Pressure 141/73 H 132/77 Pulse Oximetry 100 100 100 Oxygen Delivery Room Air Room Air Fraction of Inspired Oxygen 12/11/23 19:24 12/11/23 19:39 12/11/23 19:48 Temperature Pulse Rate 85 66 66 Respiratory Rate 18 13 18 Blood Pressure Pulse Oximetry 100 100 100 Oxygen Delivery Fraction of Inspired Oxygen 12/11/23 20:20 12/11/23 20:33 12/11/23 20:51 Temperature Pulse Rate 63 65 67 Respiratory Rate 16 15 12 Blood Pressure Pulse Oximetry 100 98 100 Oxygen Delivery Fraction of Inspired Oxygen 12/11/23 21:00 12/11/23 22:02 12/11/23 22:00 Temperature 98 F Pulse Rate 67 78 67 Respiratory Rate 14 18 Blood Pressure 134/75 117/70 Pulse Oximetry 98 100 Oxygen Delivery Fraction of Inspired Oxygen 12/11/23 22:30 12/12/23 00:03 12/12/23 00:00 Temperature 97.6 F Pulse Rate 78 68 66 Respiratory Rate 18 18 Blood Pressure 123/70 Pulse Oximetry 100 100 Oxygen Delivery Room Air Fraction of Inspired Oxygen 12/12/23 02:00 12/12/23 03:46 12/12/23 05:07 Temperature 97.8 F Pulse Rate 72 62 69 Respiratory Rate 18 18 Blood Pressure 146/78 H Pulse Oximetry 100 100 Oxygen Delivery Room Air Fraction of Inspired Oxygen 12/12/23 04:00 12/12/23 05:54 12/12/23 07:38 Temperature 97.9 F Pulse Rate 68 63 68 Respiratory Rate 16 Blood Pressure 149/76 H Pulse Oximetry 100 Oxygen Delivery Fraction of Inspired Oxygen 12/12/23 08:13 12/12/23 08:00 12/12/23 08:00 Temperature Pulse Rate 72 Respiratory Rate Blood Pressure Pulse Oximetry 100 100 Oxygen Delivery Room Air Room Air Fraction of Inspired Oxygen 21 12/12/23 10:00 12/12/23 11:35 12/12/23 12:00 Temperature 97.4 F L Pulse Rate 62 64 64 Respiratory Rate 18 Blood Pressure 145/72 H Pulse Oximetry 100 Oxygen Delivery Fraction of Inspired Oxygen 12/12/23 12:00 Temperature
[2023-12-12 14:49] LABS: Alanine Aminotransferase 26 U/L (6-50); Albumin Level 4.9 g/dL (3.5-5.1); Alkaline Phosphatase 54 U/L (38-126); Anion Gap 13 mmol/L (4-12); Aspartate Amino Transferase 32 U/L (17-59); Bilirubin,Total 0.5 mg/dL (0.2-1.3); Blood Urea Nitrogen 21 mg/dL (9-20); Calcium 10.6 mg/dL (8.4-10.2); Carbon Dioxide 20 mmol/L (22-30); Chloride 113 mmol/L (98-107); Estimated CRCL calculation 61 ml/min; Estimated Glomerular Filt Rate 57; Glucose 119 mg/dL (65-110); Magnesium 2.5 mg/dL (1.6-2.3); Potassium 4.5 mmol/L (3.4-5.0); Sodium 146 mmol/L (137-145)
--- NOTE | 2023-12-12 14:49 | PCCCNOTE ---
On 12/12/23, the student, [Ira Orlando ], provided care and completed [facility] documentation on this patient. I have reviewed the student's documentation and agree with the findings.
[2023-12-12] MEDS: HEPARIN SODIUM 5,000 UNITS/ML VIAL 5000 UNITS SUB-Q (20:33)
[2023-12-12] MEDS: ACETAMINOPHEN 500 MG TABLET 1000 MG PO (20:33)
[2023-12-13] VITALS (14 sets, daily range): BP systolic 125–159; BP diastolic 65–78; PULSE 51–78; RESP 18; TEMP 36.1–36.4; O2SAT 100
--- NOTE | 2023-12-13 | EST_ITS ---
Patient Info Name: James Higuera Age: 57 years : 1965 Gender: Male Ht: 72 in Wt: 171 lbs BSA: 1.99 m2 Exam Date: 12/13/2023 9:27 AM Exam Location: Echo Lab Patient Status: Inpatient Admit Date: 12/12/2023 Staff Ordering Physician: Gloria Guzman Attending Provider: Patrick Melendez MD Exercise Technologist: Tresa Lemus RDCS Nurse: Gloria Guzman APN Exam Type: CA stress test treadmill w NM Study Info Indications R07.9 - Chest pain, unspecified A nuclear stress test was performed. Summary 1. Sinus rhythm, normal electrocardiogram. 2. No ischemic ST segment abnormalities following treadmill exercise. 3. None. 4. Clinically and electrocardiographically negative exercise stress test to 81% of age predicted maximum heart rate. 5. Myocardial perfusion imaging study to be reported by Radiology. Protocol: [place] Stress ECG Details Stage: REST Duration (min): 0 min : 50 sec Speed (mph): 0.0 Grade (%): 0 HR (bpm): 66 SBP (mmHg): 159 DBP (mmHg): 84 METS: --- Stage: REST Duration (min): 5 min : 10 sec Speed (mph): 0.0 Grade (%): 0 HR (bpm): 83 SBP (mmHg): 159 DBP (mmHg): 84 METS: --- Stage: STAGE 1 Duration (min): 1 min : 0 sec Speed (mph): 1.7 Grade (%): 10 HR (bpm): 94 SBP (mmHg): 159 DBP (mmHg): 84 METS: --- Stage: STAGE 1 Duration (min): 2 min : 0 sec Speed (mph): 1.7 Grade (%): 10 HR (bpm): 98 SBP (mmHg): 159 DBP (mmHg): 84 METS: --- Stage: STAGE 1 Duration (min): 3 min : 0 sec Speed (mph): 1.7 Grade (%): 10 HR (bpm): 100 SBP (mmHg): 154 DBP (mmHg): 77 METS: --- Stage: STAGE 2 Duration (min): 1 min : 0 sec Speed (mph): 2.5 Grade (%): 12 HR (bpm): 110 SBP (mmHg): 154 DBP (mmHg): 77 METS: --- Stage: STAGE 2 Duration (min): 2 min : 0 sec Speed (mph): 2.5 Grade (%): 12 HR (bpm): 116 SBP (mmHg): 153 DBP (mmHg): 70 METS: --- Stage: STAGE 2 Duration (min): 3 min : 0 sec Speed (mph): 2.5 Grade (%): 12 HR (bpm): 121 SBP (mmHg): 153 DBP (mmHg): 70 METS: --- Stage: STAGE 3 Duration (min): 1 min : 0 sec Speed (mph): 3.4 Grade (%): 14 HR (bpm): 127 SBP (mmHg): 154 DBP (mmHg): 70 METS: --- Stage: STAGE 3 Duration (min): 2 min : 0 sec Speed (mph): 3.4 Grade (%): 14 HR (bpm): 131 SBP (mmHg): 154 DBP (mmHg): 70 METS: --- Stage: STAGE 3 Duration (min): 2 min : 34 sec Speed (mph): 3.4 Grade (%): 14 HR (bpm): 131 SBP (mmHg): 154 DBP (mmHg): 73 METS: --- Stage: RECOVERY Duration (min): 0 min : 25 sec Speed (mph): 0.0 Grade (%): 0 HR (bpm): 131 SBP (mmHg): 154 DBP (mmHg): 73 METS: --- Stage: RECOVERY Duration (min): 1 min : 25 sec Speed (mph): 0.0 Grade (%): 0 HR (bpm): 114 SBP (mmHg): 124 DBP (mmHg): 71 METS: --- Stage: RECOVERY Duration (min): 2 min : 25 sec Sp
[2023-12-13] MEDS: PANTOPRAZOLE 40 MG TABLET PO (08:35)
[2023-12-13] MEDS: ATORVASTATIN 20 MG TABLET PO (08:35)
[2023-12-13] MEDS: ASPIRIN 81 MG CHEWABLE TABLET PO (08:38)
[2023-12-13] MEDS: HEPARIN SODIUM 5,000 UNITS/ML VIAL 5000 UNITS SUB-Q (08:40)
--- NOTE | 2023-12-13 09:03 | PM.IMPN ---
Progress Note: A&P Assessment and Plan (1) Chest pain: Qualifiers: Chest pain type: unspecified Qualified Code(s): R07.9 - Chest pain, unspecified Code(s): R07.9 - Chest pain, unspecified Status: Acute Plan 57-year-old male with past medical history significant for gastroesophageal reflux disease. patient presented to the emergency room after having episode while driving of flutter in the chest diaphoresis lightheadedness nausea this episode lasted roughly 40 minutes? 1. Chest pain: Appreciate cardiology help Continue with aspirin, statin Await echocardiogram Serial troponin is trending down, troponin negative today Plan for stress test today no complication during stress test, patient denies chest pain on stress test, pending report 2. GERD: patient has acid reflux intermittently, denies abdomen pain Continue with pantoprazole 3. Code status: Full 4. DVT prophylaxis: Heparin subQ 5. Disposition: Pending improvement/pending stress test Subjective Date/time seen: 12/13/23 09:03 Interval history: patient is afebrile overnight, blood pressure stable, serial troponin is trending down, troponin negative today. patient underwent cardiac stress test today, patient denies chest pain, shortness of breath, palpitation, abdomen pain, nausea vomiting diarrhea. Patient afebrile, blood pressure stable Exam Narrative: GENERAL: Pleasant, in no acute distress. Well-nourished. - EYES: EOMI. Anicteric. - HENT: Moist mucous membranes. - LUNGS: Clear to auscultation bilaterally, no wheezing, rhonchi, or rales. - CARDIOVASCULAR: Regular rate and rhythm. No murmur. No JVD. - ABDOMEN: Soft, non-tender and non-distended. No palpable masses. - EXTREMITIES: No edema. Peripheral pulses 2+. Non-tender. - NEUROLOGIC: No focal neurological deficits. CN II-XII grossly intact. - PSYCHIATRIC: Awake, Alert and oriented x 3. Appropriate mood and affect. - SKIN: No rashes or lesions. Warm. - LYMPH: No cervical lymphadenopathy. Objective Data Vital Signs Vital Signs: Vital Signs - 24 hr 12/12/23 10:00 12/12/23 11:35 12/12/23 12:00 Temperature 97.4 F L Pulse Rate 62 64 64 Respiratory Rate 18 Blood Pressure 145/72 H Pulse Oximetry 100 Oxygen Delivery Fraction of Inspired Oxygen 12/12/23 12:00 12/12/23 14:00 12/12/23 15:59 Temperature 97.0 F L Pulse Rate 67 63 Respiratory Rate 16 Blood Pressure 149/79 H Pulse Oximetry 100 Oxygen Delivery Room Air Fraction of Inspired Oxygen 12/12/23 16:00 12/12/23 16:00 12/12/23 18:00 Temperature Pulse Rate 61 62 Respiratory Rate Blood Pressure Pulse Oximetry Oxygen Delivery Room Air Fraction of Inspired Oxygen 12/12/23 19:56 12/12/23 20:08 12/12/23 20:00 Temperature 97.6 F Pulse Rate 62 60 61 Respiratory Rate 16 18 Blood Pressure 129/67 Pulse Oximetry 100 100 Oxygen Delivery Room Air Fraction of Inspired Oxygen 21 12/12/23 22:00 12/13/23 00:00 12/13/23 00:00 Temperature Pulse Rate 62 63 63 Respiratory Rate 18 Blood Pressure Pulse Oximetry 100 Oxygen Delivery Room Air Fraction of Inspired Oxygen 21 12/13/23 00:15 12/13/23 02:00 12/13/23 04:00 Temperature 97.6 F Pulse Rate 63 54 L 54 L Respiratory Rate 18 18 Blood Pressure 130/77 Pulse Oximetry 100 100 Oxygen Delivery Room Air Fraction of Inspired Oxygen 21 12/13/23 04:33 12/13/23 04:00 12/13/23 06:00 Temperature 97.6 F Pulse Rate 62 51 L 67 Respiratory Rate 18 Blood Pressure 125/78 Pulse Oximetry 100 Oxygen Delivery Fraction of Inspired Oxygen 12/13/23 07:25 Temperature 97.0 F L Pulse Rate 62 Respiratory Rate 18 Blood Pressure 148/73 H Pulse Oximetry 100 Oxygen Delivery Fraction of Inspired Oxygen Intake/Output Intake/Output: Intake & Output 12/10/23 12/11/23 12/12/23 12/13/23 23:59 23:59 23:59 23:59 Intake Total 2120 600 Balance 2120 600
--- NOTE | 2023-12-13 09:50 | PM.PNCARD ---
Progress Note: A&P Assessment and Plan (1) Elevated troponin: Code(s): R79.89 - Other specified abnormal findings of blood chemistry Status: Acute Assessment and Plan: Mild troponin elevation with flat curve presenting with atypical symptoms suggestive of heightened anxiety/panic attack. Underwent exercise MPI this morning which was negative for any ischemia. OK for discharge from a cardiac perspective. (2) Chest pain: Qualifiers: Chest pain type: unspecified Qualified Code(s): R07.9 - Chest pain, unspecified Code(s): R07.9 - Chest pain, unspecified Status: Acute Assessment and Plan: No recurrence since admission. (3) Palpitations: Code(s): R00.2 - Palpitations Status: Acute Assessment and Plan: Palpitations were very brief lasting no more than a couple of seconds and he has not demonstrated SVT or other significant arrhythmias since presentation. We discussed at length should he have had persistent or rapid tachyarrhythmia this could explain the vast majority if not all the symptoms including elevated troponin. However, there is no documentation and palpitations were not a prominent symptom which persisted nor has not recurred. No indication for AV daisy blocking agents at this time. (4) Gastroesophageal reflux disease without esophagitis: Code(s): K21.9 - Gastro-esophageal reflux disease without esophagitis Status: Acute Assessment and Plan: Management per primary service. 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 Denies any chest pain, palpitations. Seeing him in the cardiac stress lab. Review of Systems Review of Systems: Remainder of the review of systems is otherwise negative aside from that noted in the HPI. All systems reviewed & are unremarkable except as noted in HPI and below Constitutional: Constitutional: Reports as per HPI and Reports no additional constitutional complaints Eyes: Eyes: Reports as per HPI and Reports no additional eye complaints ENT: Reports system reviewed and no additional complaints, except as documented and Reports as per HPI Cardiovascular: Cardiovascular: Reports as per HPI and Reports no additional cardiovascular complaints Respiratory: Respiratory: Reports as per HPI and Reports no additional respiratory complaints Gastrointestinal: Gastrointestinal: Reports as per HPI and Reports no additional gastrointestinal complaints Genitourinary: Genitourinary: Reports no additional male genitourinary complaints and Reports as per HPI Musculoskeletal: Musculoskeletal: Reports no additional musculoskeletal complaints and Reports as per HPI Integumentary/Breasts: Skin/Breast: Reports system reviewed and no additional complaints, except as docu and Reports as per HPI Neurologic: Reports system reviewed and no additional complaints, except as documented and Reports as per HPI Psychiatric: Psychiatric: Reports no additional psychiatric complaints and Reports as per HPI Endocrine: Endocrine: Reports no additional endocrine complaints and Reports as per HPI Hematologic/Lymphatic: Hematologic/Lymphatic: Reports no additional hematologic/lymphatic complaints and Reports as per HPI Allergic/Immunologic: Allergic/Immunologic: Reports no additional allergic/immunologic complaints and Reports as per HPI Exam Narrative: General: Well developed, alert and oriented x3. No apparent distress, comfortable, pleasant, and cooperative. Head: atraumatic, normocephalic Eyes: EOM intact, sclerae anicteric, conjunctivae unremarkable Ears/Nose: external inspection of ears and nose were grossly normal Mouth/Throat: oral mucosa pink and moist Neck: supple, normal range of motion, no jugul
--- NOTE | 2023-12-13 15:07 | PM.IMPN ---
Subjective Date/time seen: 12/13/23 15:07 Interval history: Objective Data Vital Signs Vital Signs: Vital Signs - 24 hr 12/12/23 15:59 12/12/23 16:00 12/12/23 16:00 Temperature 97.0 F L Pulse Rate 63 61 Respiratory Rate 16 Blood Pressure 149/79 H Pulse Oximetry 100 Oxygen Delivery Room Air Fraction of Inspired Oxygen 12/12/23 18:00 12/12/23 19:56 12/12/23 20:08 Temperature 97.6 F Pulse Rate 62 62 60 Respiratory Rate 16 18 Blood Pressure 129/67 Pulse Oximetry 100 100 Oxygen Delivery Room Air Fraction of Inspired Oxygen 21 12/12/23 20:00 12/12/23 22:00 12/13/23 00:00 Temperature Pulse Rate 61 62 63 Respiratory Rate Blood Pressure Pulse Oximetry Oxygen Delivery Fraction of Inspired Oxygen 12/13/23 00:00 12/13/23 00:15 12/13/23 02:00 Temperature 97.6 F Pulse Rate 63 63 54 L Respiratory Rate 18 18 Blood Pressure 130/77 Pulse Oximetry 100 100 Oxygen Delivery Room Air Fraction of Inspired Oxygen 21 12/13/23 04:00 12/13/23 04:33 12/13/23 04:00 Temperature 97.6 F Pulse Rate 54 L 62 51 L Respiratory Rate 18 18 Blood Pressure 125/78 Pulse Oximetry 100 100 Oxygen Delivery Room Air Fraction of Inspired Oxygen 12/13/23 06:00 12/13/23 07:25 12/13/23 08:00 Temperature 97.0 F L Pulse Rate 67 62 62 Respiratory Rate 18 18 Blood Pressure 148/73 H Pulse Oximetry 100 100 Oxygen Delivery Room Air Fraction of Inspired Oxygen 12/13/23 12:05 Temperature 97.5 F L Pulse Rate 67 Respiratory Rate 18 Blood Pressure 159/72 H Pulse Oximetry 100 Oxygen Delivery Fraction of Inspired Oxygen Intake/Output Intake/Output: Intake & Output 12/10/23 12/11/23 12/12/23 12/13/23 23:59 23:59 23:59 23:59 Intake Total 2120 600 Balance 2120 600 Meds/Results Medications: Active Medications Generic Name Dose Route Start Last Admin Trade Name Freq PRN Reason Stop Dose Admin Acetaminophen 1,000 mg 12/12/23 20:06 12/12/23 20:33 Acetaminophen 500 Mg Tablet PO 1,000 mg Q6H PRN Administration Mild Pain (1-3) or Fever Aspirin 81 mg 12/13/23 08:00 12/13/23 08:38 Aspirin 81 Mg Chewable Tablet PO 81 mg DAILY@0800 MAITE Administration Atorvastatin Calcium 20 mg 12/13/23 09:00 12/13/23 08:35 Atorvastatin 20 Mg Tablet PO 20 mg DAILY MAITE Administration Heparin Sodium (Porcine) 5,000 units 12/12/23 21:00 12/13/23 08:40 Heparin Sodium 5,000 Units/Ml Vial SUB-Q 5,000 units Q12HR MAITE Administration Melatonin 3 mg 12/12/23 21:00 12/13/23 00:19 Melatonin 3 Mg Tablet PO Not Given HS MAITE Pantoprazole Sodium 40 mg 12/13/23 09:00 12/13/23 08:35 Pantoprazole 40 Mg Tablet PO 40 mg QAM MAITE Administration Perflutren Lipid Microsphere 0 ml 12/12/23 09:59 Perflutren Lipid Microspheres 1.5 Ml Vial Diluted To 10 Ml Total Volume IV PUSH 12/15/23 09:59 ONCE PRN adequate visualization Protocol Radiology Results: ITS Impressions Chest X-Ray 12/11/23 16:31 IMPRESSION: 1: NO ACUTE CARDIOPULMONARY DISEASE. Chest CTA 12/11/23 19:22 IMPRESSION: 1. No pulmonary embolus. 2. Severe atrophy of right kidney. Lexiscan Stress Test 12/13/23 10:41 IMPRESSION: 1. No definite ischemia or infarct. 2. Normal left ventricular ejection fraction measuring 74%.
--- NOTE | 2023-12-13 16:32 | PM.DS ---
DS: Admitting Diagnosis Discharge Date 12/13/23 Admitting Diagnosis chest pain, GERD, DS: Discharge Diagnosis Discharge Diagnosis (1) Chest pain: Qualifiers: Chest pain type: unspecified Qualified Code(s): R07.9 - Chest pain, unspecified Code(s): R07.9 - Chest pain, unspecified Status: Acute DS: Summary Hospital Course Hospital Course: 57-year-old male with past medical history significant for gastroesophageal reflux disease. patient presented to the emergency room after having episode while driving of flutter in the chest diaphoresis lightheadedness nausea this episode lasted roughly 40 minutes? 1. Chest pain: Appreciate cardiology help Continue with aspirin, statin Await echocardiogram Serial troponin is trending down, troponin negative today Plan for stress test today no complication during stress test, patient denies chest pain on stress test, echo report ? 1. Complete two-dimensional, color flow and Doppler transthoracic echocardiogram is performed. ? 2. Left ventricular chamber dimension is normal. ? 3. Left ventricular systolic function is hyperdynamic, estimated at >70%. ? 4. There is no increased left ventricular wall thickness. ? 5. The left ventricular diastolic function is normal. ? 6. There is no aortic valve stenosis. ? 7. There is mild mitral valve regurgitation. ? 8. There is trace tricuspid valve regurgitation. ? 9. No pulmonary hypertension, estimated pulmonary arterial systolic pressure is 30 mmHg. patient underwent cardiac stress test, no ischemia per cardiology's report. 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 GERD: patient has acid reflux intermittently, denies abdomen pain Continue with pantoprazole Time Spent with Patient Time attestation: Total time spent providing and/or coordinating discharge services: Exam Narrative: GENERAL: Pleasant, in no acute distress. Well-nourished. - EYES: EOMI. Anicteric. - HENT: Moist mucous membranes. - LUNGS: Clear to auscultation bilaterally, no wheezing, rhonchi, or rales. - CARDIOVASCULAR: Regular rate and rhythm. No murmur. No JVD. - ABDOMEN: Soft, non-tender and non-distended. No palpable masses. - EXTREMITIES: No edema. Peripheral pulses 2+. Non-tender. - NEUROLOGIC: No focal neurological deficits. CN II-XII grossly intact. - PSYCHIATRIC: Awake, Alert and oriented x 3. Appropriate mood and affect. - SKIN: No rashes or lesions. Warm. - LYMPH: No cervical lymphadenopathy. Discharge Plan Discharge Attending physician on discharge: Ramiro Kraus Consulting providers: Larry Burch; Gadiel Parry Discharging Clinician: Ramiro Kraus Anticipated Discharge Date/Time: 12/13/23 16:30 Patient Disposition: Home, Self-Care Activity: as tolerated Diet: as tolerated and heart healthy Discharge Instructions: Chest pain Patient Instructions: Antibiotic Form Stand Alone Forms: General Discharge Information Follow-up/Referrals: Kareem Smith MD [Primary Care Provider] - (Patient needs to see primary care doctor in one week ) Larry Burch MD [Physician] - Discharge Medications: New pantoprazole 40 mg Tablet,Delayed Release (Dr/Ec) 40 mg PO QAM Qty: 30 0RF Continued ascorbic acid (vitamin C) 1,000 mg Tablet 3 g PO DAILY multivitamin Capsule 1 cap PO DAILY turmeric 400 mg Capsule 400 mg PO DAILY Date of admission: 12/12/23 18:24 Primary Care Provider: Kareem Smith Admitting Provider: Patrick Meelndez V. Attending physician on admission: Patrick Melendez V. Condition: Stable
== END 2023-12-13 16:55 | disposition home or self-care (01) | DRG 313 ==
LOC: ANHED 20:27 → ANHIMU 21:27
PROVIDERS: Internal Medicine; Internal Medicine Cardiovascular Disease; Physician Assistant; Admitting Provider Internal Medicine; Emergency Provider Physician Assistant; PCP Family Medicine; Visit Provider Hospitalist
DX: R07.9 Chest pain, unspecified (principal); K21.9 Gastro-esophageal reflux disease without esophagitis; N26.1 Atrophy of kidney (terminal); R00.2 Palpitations; R79.89 Other specified abnormal findings of blood chemistry; Z87.891 Personal history of nicotine dependence
CPT/HCPCS: 36415; 71046; 71275; 78452; 80053; 80061; 82948; 83036; 83735; 83880; 84484; 85025; 85380; 85610; 85730; 93005; 93017; 93306; 96374; 99285; A9270; A9502; J1644; J2060; Q9967